=== PATIENT | female | born 2005 | race Caucasian/White ===

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

== ENCOUNTER 2023-01-12 09:21 | Emergency (ER) | payer OTHER ==
[~2023-01-12] VITALS: Ht 154.9 cm; Wt 61.7 kg
[~2023-01-12 09:21] MED LIST changes: +IBUP-2213 PO
[2023-01-12 09:40] VITALS: BP 130/77
--- NOTE | 2023-01-12 10:05 | NUR ---
[facility] ER BED 11
[2023-01-12] MEDS ORDERED: ONDANSETRON 4 MG ODT PO ONE (10:25)
[2023-01-12] MEDS ORDERED: KETOROLAC 60 MG/2 ML VIAL IM ONE (10:25)
[2023-01-12 10:30] LABS: APPEARANCE,URINE CLEAR (CLEAR); BILIRUBIN,URINE NEGATIVE (NEGATIVE); BLOOD, URINE NEGATIVE (NEGATIVE); COLOR,URINE YELLOW (YELLOW); LEUKOCYTE ESTERASE ,URINE NEGATIVE (NEGATIVE); NITRITE, URINE NEGATIVE (NEGATIVE); PH,URINE 5.5 (5.0-9.0); UGLUCOSE NEGATIVE (NEGATIVE)
[2023-01-12] MEDS ORDERED: LOPE-289 PO (10:59)
[2023-01-12] MEDS ORDERED: IBUP-2213 PO (10:59)
[2023-01-12] MEDS ORDERED: ONDA8TAB87 PO (10:59)
--- NOTE | 2023-01-12 11:14 | NUR ---
PATIENT STATES MEDICATIONS EFFECTIVE. STATES 0/10 PAIN.
[2023-01-12 11:55] LABS: RBC,URINE 0-5 /HPF (0-5); WBC,URINE 0-5 /HPF (0-5)
--- NOTE | 2023-01-12 12:24 | NUR ---
Patient discharged with v/s stable. Written and verbal after care instructions given and explained. Patient alert, oriented and verbalized understanding of instructions. Ambulatory with steady gait. All questions addressed prior to discharge. ID band removed. Patient advised to follow up with PMD. Rx of IBUPROFEN, LOPERAMIDE, AND ONDASETRON given. Patient educated on indication of medication including possible reaction and side effects. Opportunity to ask questions provided and answered.
== END 2023-01-12 12:23 | disposition home or self-care (01) ==
LOC: MED 09:21
DX: R10.13 Epigastric pain (principal); R11.2 Nausea with vomiting, unspecified; R19.7 Diarrhea, unspecified; J45.909 Unspecified asthma, uncomplicated; Z79.899 Other long term (current) drug therapy; Z79.1 Long term (current) use of non-steroidal anti-inflammatories (NSAID)
CPT/HCPCS: 81001; 81025; 96372; 99283; J1885; Q0162

== ENCOUNTER 2023-09-09 12:47 | Emergency (ER) | payer OTHER ==
[~2023-09-09] VITALS: Ht 167.6 cm; Wt 72.6 kg
[~2023-09-09 12:47] MED LIST changes: +LOPE-289 PO; +ONDA8TAB87 PO
[2023-09-09 13:01] VITALS: BP 126/81; PULSE 86; RESP 18; TEMP 98; O2SAT 98
[2023-09-09] MEDS ORDERED: CETI-366 PO (13:49)
[2023-09-09] MEDS ORDERED: PRED20TA5 PO (13:49)
== END 2023-09-09 14:00 | disposition home or self-care (01) ==
LOC: MED 12:47
DX: H53.8 Other visual disturbances (principal); J45.909 Unspecified asthma, uncomplicated; Z79.899 Other long term (current) drug therapy
CPT/HCPCS: 99283